=== PATIENT | female | born 1980 | race Caucasian/White ===

== ENCOUNTER 2018-12-10 20:28 | Emergency (ER) | payer SELFPAY ==
[~2018-12-10] VITALS: Ht 157.5 cm; Wt 61.4 kg
[2018-12-10 22:50] VITALS: BP 130/88
== END 2018-12-10 23:00 | disposition home or self-care (01) ==
LOC: EMS 20:34
DX: R21 Rash and other nonspecific skin eruption (principal); F17.210 Nicotine dependence, cigarettes, uncomplicated

== ENCOUNTER 2020-04-22 11:29 | Emergency (ER) | payer MEDICAID ==
[~2020-04-22] VITALS: Ht 165.1 cm; Wt 70.5 kg
[2020-04-22 11:30] VITALS: BP 114/60
== END 2020-04-22 13:46 | disposition home or self-care (01) ==
LOC: EMS 11:35
DX: H11.32 Conjunctival hemorrhage, left eye (principal)